=== PATIENT | female | born 1990 | race Caucasian/White ===

== ENCOUNTER 2020-05-13 19:47 | Observation (INO) ==
[2020-05-13] MEDS ORDERED: Ondansetron 4 mg VIAL 2 MG/ML 2 ml VIAL IV ONE (20:09)
[2020-05-13] MEDS ORDERED: Morphine 10 MG/ML VIAL (1 ml) IV ONE (20:09)
[2020-05-13] MEDS ORDERED: NS 0.9% 1000 ml BAG 2,000 ML IV ONE (20:09)
[2020-05-13 20:49] LABS: ABS Eosinophils 0.3 10^3/ul (0-0.6); ABS Lymphocytes 2.1 10^3/ul (1.0-4.8); ABS Monocytes 0.6 10^3/ul (0-0.8); ABS Neutrophils 10.7 10^3/ul (1.5-7.7); Eosinophil % 2.2 %; Hematocrit 44 % (35-47); Hemoglobin 14.9 g/dL (12.0-16.0); Lymphocyte % 15.3 %; Mean Corpuscular HGB Conc 34 g/dL (31-36); Mean Corpuscular Hemoglobin 30 pg (27-31); Mean Corpuscular Volume 88 fL (80-97); Mean Platelet Volume 8.1 fL (7.4-10.4); Platelet Count 293 10^3/uL (150-450); Red Blood Count 5.01 10^6 /uL (3.70-4.87); Red Cell Distribution Width 12 % (10-15); White Blood Count 13.7 10^3/uL (3.5-10.8)
[2020-05-13 21:08] LABS: ALT 9 U/L (7-52); Albumin 4.3 g/dL (3.2-5.2); Albumin/Globulin Ratio 1.5 (1-3); Alkaline Phosphatase 78 U/L (34-104); BUN/Creatinine Ratio 12.5 (8-20); Blood Urea Nitrogen 9 mg/dL (6-24); C Reactive Protein 1.24 mg/L (<8.01); CO2 Carbon Dioxide 25 mmol/L (22-32); Calcium 9.4 mg/dL (8.6-10.3); Chloride 107 mmol/L (101-111); EGFR African American 116.7 (>60); EGFR Non-African American 96.5 (>60); Globulin 2.8 g/dL (2-4); Glucose 115 mg/dL (70-100); Lipase 35 U/L (11.0-82.0); Sodium 139 mmol/L (135-145); Total Protein 7.1 g/dL (6.4-8.9)
[2020-05-13 21:10] LABS: Anion Gap 7 mmol/L (2-11)
[2020-05-13 21:14] LABS: HCG Pregnancy < 0.60 mIU/mL
[2020-05-13] MEDS ORDERED: Iohexol 300 (CONTRAST) 10 ML SDV IV ONE (21:17)
[2020-05-13 21:44] LABS: Potassium Redraw 3.5 mmol/L (3.5-5.0)
[2020-05-13] MEDS ORDERED: Prochlorperazine 5 mg/ml 2 ml VIAL (10 mg) IV ONE (22:13)
[2020-05-13] MEDS ORDERED: NS 0.9% 1000 ml BAG 1,000 ML IV SCH (23:45)
[2020-05-13] MEDS ORDERED: Piperacillin/Tazobac ADVAN 3.375 GM in NS 0.9% 100 ml BAG 100 ML IVPB ONE (23:56)
[2020-05-14 00:51] LABS: Urine Appearance Cloudy; Urine Bilirubin Negative (Negative); Urine Blood Negative (Negative); Urine Color Yellow; Urine Glucose Negative (Negative); Urine Ketones Trace (Negative); Urine Nitrite Negative (Negative); Urine Protein Negative (Negative); Urine Specific Gravity 1.028 (1.010-1.030); Urine Urobilinogen Negative (Negative)
[2020-05-14] MEDS ORDERED: Ondansetron 4 mg VIAL 2 MG/ML 2 ml VIAL IV PRN ×2 (02:18→14:28)
[2020-05-14] MEDS ORDERED: HYDROmorphone 1 MG/1 ML SYRINGE IV SLOW PU PRN (02:18)
[2020-05-14] MEDS ORDERED: NS 0.9% 1000 ml BAG 1,000 ML IV SCH (02:30)
[2020-05-14] MEDS ORDERED: Piperacillin/Tazobactam VIAL 3.375 GM in NS 0.9% 100 ml BAG 100 ML IVPB SCH (05:00)
[2020-05-14] MEDS ORDERED: Influenza VAC *QUAD* 2020-21* 0.5 ML SYRINGE IM ONE (09:00)
[2020-05-14] MEDS ORDERED: Lactated Ringers 1000 ml BAG 1,000 ML IV SCH (11:00)
[2020-05-14] MEDS ORDERED: Midazolam 2 mg/2 ml VIAL 1 mg/ml 2 ml VIAL (2 mg) ONE (12:16)
[2020-05-14] MEDS ORDERED: Lidocaine 2% PF 5 ML VIAL ONE (12:16)
[2020-05-14] MEDS ORDERED: fentaNYL 100 mcg/2 ml 50 MCG/ML VIAL ONE ×2 (12:17→14:25)
[2020-05-14] MEDS ORDERED: Bupivacaine 0.25% SDV 30 ML ONE (13:07)
[2020-05-14] MEDS ORDERED: Rocuronium 50 mg VIAL 10 mg/ml 5 ml VIAL (50 mg) ONE (13:54)
[2020-05-14] MEDS ORDERED: fentaNYL 100 mcg/2 ml 50 MCG/ML VIAL IV PRN (14:28)
[2020-05-14] MEDS ORDERED: HYDROcodone/ACETAMIN 5/325 mg TAB PO PRN (14:28)
[2020-05-14] MEDS ORDERED: Naloxone 0.4 mg VIAL 0.4 mg/ml 1 ml VIAL IV PRN (14:28)
[2020-05-14] MEDS ORDERED: DiMENhydriNATE IV 50 mg/ml 1 ml VIAL IV PUSH PRN (14:28)
[2020-05-14] MEDS ORDERED: Dexamethasone IV 4 MG/ML VIAL 1 ml VIAL ONE (14:47)
[2020-05-14] MEDS ORDERED: Propofol 10 MG/ML 20 ML BTL ONE (14:47)
[2020-05-14] MEDS ORDERED: Ondansetron 4 mg VIAL 2 MG/ML 2 ml VIAL ONE ×2 (14:47→15:17)
[2020-05-14] MEDS ORDERED: HYDROcodone/ACETAMIN 5/325 mg TAB ONE (17:14)
[2020-05-14 17:15] VITALS: BP 106/56
== END 2020-05-14 17:47 | disposition home or self-care (01) ==
LOC: SSU 19:47 → ED 19:47
PROVIDERS: ADMIT Surgery; ATTEND Surgery